=== PATIENT | male | born 2000 | race Caucasian/White ===

== ENCOUNTER 2024-05-05 14:37 | Emergency (ER) | payer OTHER ==
[2024-05-05] MEDS ORDERED: KETOROLAC 30 MG/ML INJ ONE (16:28)
[2024-05-05] MEDS ORDERED: ONDANSETRON 4 MG/2 ML VIAL ONE (16:28)
[2024-05-05 16:35] LABS: Absolute Basophils 0.1 K/uL (0-0.5); Absolute Eosinophils 0.5 K/uL (0-0.5); Absolute Lymphocytes (CBC) 1.9 K/uL (0.7-4.9); Absolute Monocytes 0.7 K/uL (0.1-1.3); Absolute Neutrophil 4.8 K/uL (1.8-8.0); Eosinophils % 6.7 % (0-4.4); Hematocrit 45.5 % (39.6-49.0); Hemoglobin 16.1 g/dL (13.6-17.9); MCH 30.3 pg (27.0-35.0); MCHC 35.3 g/dL (32.0-36.0); MCV 85.7 fL (80-100); MPV 8.3 fL (7.6-11.3); Monocytes % 8.4 % (3.3-12.3); Neutrophils % 59.9 % (41.7-73.7); Nucleated Red Blood Cells % 0.1 % (0-0); Platelets 314 thou/uL (152-406); RBC Red Blood Cell Count 5.31 M/uL (4.33-5.43); Red Cell Distribution Width 12.9 % (12.1-15.2)
[2024-05-05 16:45] LABS: Specific Gravity 1.016 (1.005-1.030); Sqamous Epithelial None Seen /HPF (None Seen); Urine Bacteria None Seen /HPF (<20); Urine Bilirubin NEGATIVE (Negative); Urine Blood Negative (Negative); Urine Clarity Turbid (Clear); Urine Color Light-Yellow (Yellow); Urine Crystals Unidentified Few /HPF (None Seen); Urine Culture Reflex Order NOT NEEDED; Urine Glucose NEGATIVE (Negative); Urine Ketones NEGATIVE (Negative); Urine Microscopic Reflex YN ORDER UMIC; Urine Mucus Slight /HPF (None Seen); Urine Nitrite NEGATIVE (Negative); Urine Protein NEGATIVE (Negative); Urine RBC <5 /HPF (None Seen); Urine Urobilinogen Normal (Normal); Urine WBC <5 /HPF (<5); Urine Yeast (Budding) Trace /HPF (None Seen)
[2024-05-05 16:50] LABS: Albumin 4.3 g/dL (3.4-5.0); Albumin/Globulin Ratio 1.3 (1.1-1.8); Anion Gap 7.2 mEq/L (5.0-15.0); Bilirubin Total 0.6 mg/dL (0.2-1.0); Globulin 3.3 g/dL (2.3-3.5); Potassium 4.2 mEq/L (3.5-5.1); Protein, Total 7.6 g/dL (6.4-8.2)
--- NOTE | 2024-05-05 17:10 | RAD REPORT ---
EXAM: Right upper quadrant ultrasound. CLINICAL HISTORY: gb eval COMPARISON: None. FINDINGS: Gallbladder: Normal. Bile ducts: No intrahepatic or extrahepatic biliary dilatation. Common bile duct measures 3 mm. Limited imaging of the liver shows no concerning finding. IMPRESSION: Unremarkable exam.
--- NOTE | 2024-05-05 17:18 | EDPHYS ---
Physician Documentation [facility] Name: Lance Howell Age: 24 yrs Sex: Male : 2000 Arrival Date: 05/05/2024 Time: 14:37 Bed 20 Private MD: ED Physician Rodrigue Cary HPI: 05/05 15:23 This 24 yrs old Male presents to ER via Ambulatory with complaints of Stomach ec2 pain. 15:23 Patient arrives today for evaluation of upper abdominal pain. Reports right upper ec2 quadrant abdominal pain that worsened with eating greasy food. No nausea or vomiting at this time. Reports no urinary complaints. No previous abdominal surgeries.. Historical: - Allergies: 15:18 No Known Allergies; cm10 - PMHx: 15:18 Leukemia; cm10 - Immunization history:: Adult Immunizations up to date. - Infectious Disease History:: Denies. - Social history:: Smoking status: Patient denies any tobacco usage or history of. ROS: 15:23 Constitutional: as per hpi ec2 Exam: 15:23 Constitutional: GEN: NAD Head: atraumatic Eyes: EOMI Ears: External ears are ec2 normal. CV: regular rate LUNGS: no respiratory distress ABD: non-distended, soft, tender in the right upper quadrant, not guarding, not rigid SKIN: no evidence of rashes MSK: no evidence of trauma Vital Signs: 15:18 BP 134 / 86; Pulse 72; Resp 16; Temp 98; Pulse Ox 99% on R/A; Weight 99.79 kg; Height 5 cm10 ft. 8 in. ; Pain 6/10; 16:00 BP 122 / 76; Pulse 63; Resp 16; Pulse Ox 98% ; me1 16:34 Pain 2/10; me1 17:00 BP 120 / 75; Pulse 69; Resp 15; Pulse Ox 98% ; me1 18:00 BP 103 / 82; Pulse 71; Resp 16; Temp 98.4; Pulse Ox 96% ; me1 15:18 Body Mass Index 33.45 (99.79 kg, 172.72 cm) cm10 15:18 Pain Scale: Adult cm10 16:34 Pain Scale: Adult me1 MDM: 15:16 Medical Screening Exam initiated ec2 15:23 Data reviewed: vital signs, nurses notes. ED course: Patient arrives today for ec2 evaluation of right upper quadrant abdominal pain. Examination US abdominal findings as above. Will obtain lab work and ultrasound. Suspect cholelithiasis. Additionally considered other processes such as appendicitis, urinary tract infection, pancreatitis.. 17:13 ED course: Ultrasound negative for gallstones or cholecystitis. Will start the patient ec2 on antacid medication for possible gastritis given the symptoms associated with eating. Will discharge home. Return precautions given. 17:16 ED course: On reassessment patient with marked improvement in symptoms. Suspect ec2 possible gastritis. Will discharge home. Return precautions given.. 05/05 15:20 Order name: CBC with Diff; Complete Time: 16:48 ec2 05/05 15:20 Order name: CMP; Complete Time: 16:54 ec2 05/05 15:20 Order name: Lipase; Complete Time: 16:54 ec2 05/05 15:20 Order name: Urinalysis w/ reflexes; Complete Time: 16:48 ec2 05/05 15:20 Order name: US Abdomen Limited; Complete Time: 17:13 ec2 05/05 15:20 Order name: IV Saline Lock; Complete Time: 16:25 ec2 05/05 15:20 Order name: Labs collected and sent; Complete Time: 16:25 ec2 Administered Medications: 16:32 Drug: TORadol - Ketorolac IVP 15 mg IVP once Route: IVP; Site: left antecubital; me1 16:34 Follow up: Pain 2/10 Adult; Response: No adverse reaction; Pain is decreased me1 16:32 Drug: Ondansetron IVP 4 mg IVP once; over 2 minutes Route: IVP; Site: left antecubital; me1 16:34 Follow up: Response: No adverse reaction; Nausea is decreased me1 Disposition Summary: 05/05/24 17:17 Discharge Ordered Notes: Location: Home ec2 Condition: Stable ec2 Diagnosis - Acute gastritis ec2 Followup: ec2 - With: Josue Adams MD - When: - Reason: Recheck today's complaints Followup: ec2 - With: Toi Renee MD - When: - Reason: Recheck today's complaints Discharge Instructions: - Discharge Summary Sheet ec2 - Gastritis, Adult, [id number] ec2 Forms: - Medication Reconciliation Form ec2 - Antibiotic Education ec2 - Prescription Opioid Use ec2 - Patient Portal Instructions ec2 - Leadership Thank You Letter ec2 Prescriptions: - Protonix 40 mg Oral Tablet - take 1 tablet ORAL route once daily; 30 tablet; Refills: 0, Product Selection ec2 Permitted - Zofran 4 mg Oral Tablet - take 1 tablet ORAL route every 12 hours As needed; 20 tablet; Refills: 0, ec2 Product Selection Permitted Signatures: Dispatcher [employer] Alayna Saha RN RN cm10 Flora Nguyen RN RN me1 Rodrigue Cary MD MD ec2
--- NOTE | 2024-05-05 17:18 | ER ---
Nurse's Notes [facility] Name: Lance Howell Age: 24 yrs Sex: Male : 2000 Arrival Date: 05/05/2024 Time: 14:37 Bed 20 Private MD: Diagnosis: Acute gastritis Presentation: 05/05 15:16 Chief complaint: Patient states: RUQ ABDOMINAL PAIN ONSET 04/20. PT STATES THAT THE cm10 PAIN IS WORSE WITH EATING GREASY FOOD. Coronavirus screen: Client denies travel out of the [place] in the last 14 days. Ebola Screen: Patient denies travel to an Ebola-affected area in the 21 days before illness onset. No symptoms or risks identified at this time. Initial Sepsis Screen: Does the patient meet any 2 criteria? No. Patient's initial sepsis screen is negative. Does the patient have a suspected source of infection? No. Patient's initial sepsis screen is negative. Risk Assessment: Do you want to hurt yourself or someone else? Patient reports no desire to harm self or others. Onset of symptoms was April 20, 2024. 15:16 Method Of Arrival: Ambulatory cm10 15:16 Acuity: ADENIKE 3 cm10 Triage Assessment: 15:17 General: Appears in no apparent distress. comfortable, Behavior is calm, cooperative, cm10 appropriate for age. Neuro: No deficits noted. Level of Consciousness is awake, alert, obeys commands, Oriented to person, place, time, situation, Appropriate for age. Respiratory: No deficits noted. Airway is patent Respiratory effort is even, unlabored, Respiratory pattern is regular, symmetrical. GI: Reports upper abdominal pain. Historical: - Allergies: 15:18 No Known Allergies; cm10 - PMHx: 15:18 Leukemia; cm10 - Immunization history:: Adult Immunizations up to date. - Infectious Disease History:: Denies. - Social history:: Smoking status: Patient denies any tobacco usage or history of. Screenin:35 [facility] ED Fall Risk Assessment (Adult) History of falling in the last 3 months, me1 including since admission No falls in past 3 months (0 pts) Confusion or Disorientation No (0 pts) Intoxicated or Sedated No (0 pts) Impaired Gait No (0 pts) Mobility Assist Device Used No (0 pt) Altered Elimination No (0 pt) Score/Fall Risk Level 0 - 2 = Low Risk Maintained a safe environment, Provided non-skid footwear, Hourly rounding (assess needs \T\ fall precautionary measures) done. Abuse screen: Denies threats or abuse. Nutritional screening: No deficits noted. Tuberculosis screening: No symptoms or risk factors identified. Assessment: 16:35 General: Appears uncomfortable, well groomed, well developed, well nourished, Behavior me1 is calm, cooperative, appropriate for age, Reports RUQ pain that is worse after eating since 04/20/24. Pain: Complains of pain in right upper quadrant Pain radiates to back Pain currently is 4 out of 10 on a pain scale. at worst was 9 out of 10 on a pain scale. Quality of pain is described as dull, Pain began gradually, Is intermittent. Neuro: Level of Consciousness is awake, alert, obeys commands, Oriented to person, place, time, situation, Appropriate for age. Cardiovascular: Patient's skin is warm and dry. Respiratory: Airway is patent Respiratory effort is even, unlabored, Respiratory pattern is regular, symmetrical. GI: Reports upper abdominal pain, nausea. GI: Abdomen is round non-distended. : No signs and/or symptoms were reported regarding the genitourinary system. EENT: No signs and/or symptoms were reported regarding the EENT system. Derm: Skin is intact, is healthy with good turgor, Skin is pink, warm \T\ dry. Musculoskeletal: No signs and/or symptoms reported regarding the musculoskeletal system. Vital Signs: 15:18 BP 134 / 86; Pulse 72; Resp 16; Temp 98; Pulse Ox 99% on R/A; Weight 99.79 kg; Height 5 cm10 ft. 8 in. ; Pain 6/10; 16:00 BP 122 / 76; Pulse 63; Resp 16; Pulse Ox 98% ; me1 16:34 Pain 2/10; me1 17:00 BP 120 / 75; Pulse 69; Resp 15; Pulse Ox 98% ; me1 18:00 BP 103 / 82; Pulse 71; Resp 16; Temp 98.4; Pulse Ox 96% ; me1 15:18 Body Mass Index 33.45 (99.79 kg, 172.72 cm) cm10 15:18 Pain Scale: Adult cm10 16:34 Pain Scale: Adult ar1 ED Course: 14:40 Patient arrived in ED. ra3 14:47 Rodrigue Cary MD is Attending Physician. ec2 15:17 Triage completed. cm10 15:18 Arm band placed on right wrist. Patient placed in waiting room. cm10 16:15 Flora Nguyen, RN is Primary Nurse. me1 16:25 CBC with Diff Sent. me1 16:25 CMP Sent. me1 16:25 Lipase Sent. me1 16:25 Urinalysis w/ reflexes Sent. me1 16:25 Initial lab(s) drawn, by me, sent to lab. Urine collected: clean catch specimen, clear. me1 Inserted saline lock: 22 gauge in right antecubital area, using aseptic technique. 16:35 Patient has correct armband on for positive identification. Bed in low position. Call me1 light in reach. Side rails up X2. Provided Education on: POC. Verbalized understanding.. Client placed on continuous cardiac and pulse oximetry monitoring. NIBP monitoring applied. Pulse ox on. NIBP on. 16:35 Warm blanket given. me1 16:35 No provider procedures requiring assistance completed. me1 16:43 US Abdomen Limited In Process Unspecified. EDMS 17:17 Josue Adams MD is Referral Physician. ec2 17:17 Referral Physician role handed off by Josue Adams MD ec2 17:17 Toi Renee MD is Referral Physician. ec2 18:22 IV discontinued, intact, bleeding controlled, No redness/swelling at site. Pressure me1 dressing applied. Administered Medications: 16:32 Drug: TORadol - Ketorolac IVP 15 mg IVP once Route: IVP; Site: left antecubital; me1 16:34 Follow up: Pain 2/10 Adult; Response: No adverse reaction; Pain is decreased me1 16:32 Drug: Ondansetron IVP 4 mg IVP once; over 2 minutes Route: IVP; Site: left antecubital; me1 16:34 Follow up: Response: No adverse reaction; Nausea is decreased me1 Medication: 16:35 VIS not applicable for this client. me1 Outcome: 17:17 Discharge ordered by . ec2 18:22 Discharged to home ambulatory, with family, me1 18:22 Condition: stable 18:22 Discharge instructions given to patient, family, Instructed on discharge instructions, follow up and referral plans. medication usage, Demonstrated understanding of instructions, follow-up care, medications, Prescriptions given X 2, 18:22 Patient left the ED. me1 Signatures: Dispatcher [employer] Alayna Saha RN RN cm10 Flora Nguyen RN RN me1 Rodrigue Cary MD MD ec2 Shi Zheng ra3 Corrections: (The following items were deleted from the chart) 16:35 15:16 Chief complaint: Patient states: RUQ ABDOMINAL PAIN ONSET 04/20. PT STATES THAT me1 THE PAIN IS WORSE WITH EATING GREASY FOOD. cm10
[2024-05-05 18:57] VITALS: BP 103/82; TEMP 98.4; O2SAT 96
== END 2024-05-05 18:22 | disposition home or self-care (01) ==
LOC: ER 14:37
DX: K29.00 Acute gastritis without bleeding (principal)
CPT/HCPCS: 85025; 81001; 36415; 83690; 80053; 76705; 96375; 96374; 99284; J2405